=== PATIENT | female | born 1970 | race African-American/Black ===

== ENCOUNTER 2020-09-23 01:35 | Emergency (ER) | payer OTHER ==
[~2020-09-23] VITALS: Ht 180.3 cm; Wt 107.0 kg
[2020-09-23] MEDS ORDERED: HYDROCODONE/ACETAMINOPHEN 5/325MG TABLET PO STA (02:29)
[2020-09-23 03:17] VITALS: BP 144/80
[2020-09-23] MEDS ORDERED: LIDOCAINE HCL/PF 1% 10 MG/ML 5ML VIAL IJ ONE (04:30)
[2020-09-23] MEDS ORDERED: IBUP-2029 MT (06:25)
== END 2020-09-23 07:24 | disposition home or self-care (01) ==
LOC: ER 01:35
DX: S00.01XA Abrasion of scalp, initial encounter (principal); S63.114A Dislocation of metacarpophalangeal joint of right thumb, initial encounter; F41.9 Anxiety disorder, unspecified; J45.909 Unspecified asthma, uncomplicated; F32.9 Major depressive disorder, single episode, unspecified; M79.7 Fibromyalgia; F90.9 Attention-deficit hyperactivity disorder, unspecified type; Y04.0XXA Assault by unarmed brawl or fight, initial encounter; Y07.03 Male partner, perpetrator of maltreatment and neglect; Y93.89 Activity, other specified; Y92.89 Other specified places as the place of occurrence of the external cause; Y99.8 Other external cause status
CPT/HCPCS: 70450; 73130; 73140; 99284; J3490; Z7610